=== PATIENT | male | born 1960 | race Caucasian/White ===

== ENCOUNTER 2016-10-21 10:44 | Emergency (ER) | payer OTHER ==
--- NOTE | ~2016-10-21 | CR230 ---
[facility]. [facility] A Service of [facility] & [facility] RADIOLOGY TEXT RESULTS PATIENT: CHRIS GARCIA LOCATION: SED : 62 UNIT #: [id number] AGE: [address]: Shimon Paredes MD SEX: M ORDER DR: [id number] [place] [id number] E MR#: [id number] Acc #: [id number] NAME: CHRIS GARCIA. : 1960 SEX: M STUDY DATE/TIME: 10/21/2016 10:32 UNIT: SED ROOM: STUDY DESCRIPTION: CR Shoulder Min 2 View Rt Attending Physician: Shimon Paredes M.D. Ordering Physician: Shimon Paredes M.D. Primary Care Physician: No Primary Care Physician MEDICAL IMAGING REPORT This report is preliminary unless electronic signature is present. EXAM Right shoulder, 3 views. HISTORY Arm and shoulder pain beginning 09/10/2016, after doing ductwork. TECHNIQUE 3 views are submitted. FINDINGS The exam shows AC joint hypertrophic changes. The glenohumeral joint is intact. No fractures are identified. CONCLUSION AC joint osteoarthropathy; otherwise, negative. Dictated by... Mani Patel M.D. THIS IS AN ELECTRONICALLY VERIFIED REPORT Mani Patel M.D. at 10/22/2016 5:04 PM FRANCI/giovanna TD: 10/21/2016 11:39 JOB #: [id number] MEDICAL IMAGING REPORT
[~2016-10-21 10:44] MED LIST: ATORVASTATIN CA20 MG PO; CHOLESTEROL MED; GLIPIZIDE PO; GLUCOPHAGE XR500 MG PO; GLUCOTROL PO; KEPPRA500 MG PO; LIPITOR PO; LISINOPRIL PO; METFORMIN HCL1000 M1 PO; METFORMIN PO; MS CONTIN60 M1 PO; NAPROSYN500 MG PO; OXYCODONE HCL30 MG PO; PERCOCET5/325 PO; PHENERGAN25 M1 PO; PHENERGAN25 MG PO; VICODIN 5/500 T1 TAB PO
[2016-10-21] MEDS ORDERED: VOLTAREN75 MG PO (11:34)
== END 2016-10-21 11:33 | disposition home or self-care (01) ==
LOC: SED 10:44
DX: S46.911A Strain of unspecified muscle, fascia and tendon at shoulder and upper arm level, right arm, initial encounter (principal); M19.011 Primary osteoarthritis, right shoulder; E11.9 Type 2 diabetes mellitus without complications; F17.210 Nicotine dependence, cigarettes, uncomplicated; Z88.8 Allergy status to other drugs, medicaments and biological substances; Z79.899 Other long term (current) drug therapy; X58.XXXA Exposure to other specified factors, initial encounter; Y92.69 Other specified industrial and construction area as the place of occurrence of the external cause
CPT/HCPCS: 73030; 82947; 99283

== ENCOUNTER 2017-03-16 14:57 | Emergency (ER) | payer OTHER ==
--- NOTE | ~2017-03-16 | CT2 ---
[facility] A Service of [facility] & [facility] RADIOLOGY TEXT RESULTS PATIENT: CHRIS GARCIA LOCATION: SED : 62 UNIT #: [id number] AGE: [address]: Wil Ledesma MD SEX: M ORDER DR: [id number] [address] [address] [id number] E MR#: [id number] Acc #: [id number] NAME: CHRIS GARCIA. : 1960 SEX: M STUDY DATE/TIME: 03/16/2017 15:28 UNIT: SED ROOM: STUDY DESCRIPTION: CT Abd and Pelv W Cont Attending Physician: Wil Ledesma M.D. Ordering Physician: Wil Ledesma M.D. Primary Care Physician: No Primary Care Physician MEDICAL IMAGING REPORT This report is preliminary unless electronic signature is present. EXAM CT of the abdomen and pelvis with contrast. INDICATIONS Mid abdominal pain starting at 02:30 today after eating. TECHNIQUE [address] of the abdomen and pelvis performed following the administration of IV contrast. Coronal and sagittal reformatted images are obtained. This CT exam was performed with one or more of the following radiation dose reduction techniques: automatic exposure control, adjustment of mA and/or kV according to patient size, and iterative reconstruction. COMPARISON Comparison with 11/27/2014. FINDINGS There is minimal linear scarring or atelectasis in the base of the right lung. There is a stable hemangioma in the periphery of the liver. The gallbladder is unremarkable. The spleen is unremarkable. Large chronic stone in the midpole region of the left kidney measuring about 1.1 x 0.5 cm, stable. There is some mild dilatation of mid zane distal to the stone. This also appears stable. There is a tiny cyst in the lower pole of the right kidney. The adrenal glands are unremarkable. The pancreas is unremarkable. Slight interval increase in size of infrarenal abdominal aortic aneurysm measuring about 3.7-3.8 cm in greatest AP dimension. Previously, it was 3.5 cm. There is there are some thickened loops of small bowel within the left side of the abdomen near the upper quadrant. This may represent enteritis. Pelvis: The colon is unremarkable. The appendix is present. It is STS. [facility] A Service of [facility] & [facility] RADIOLOGY TEXT RESULTS PATIENT: CHRIS GARCIA LOCATION: [facility] : 62 UNIT #: [id number] AGE: [address]: Wil Ledesma MD SEX: M ORDER DR: partially fluid-filled and mildly dilated at 7 mm, but there is no surrounding inflammatory stranding. Correlate clinically with patient's symptoms and location of pain. Prostatomegaly. No free fluid. Bone windows are unremarkable. IMPRESSION 1. There is thickening of multiple loops of small bowel within the left side of the abdomen near the upper quadrant, which may indicate enteritis. Correlate clinically. 2. Equivocal appearance of the appendix. It is mildly dilated at 7 mm partially fluid-filled, but no evidence of a surrounding inflammatory stranding. Correlate clinically with patient's symptoms history and location of pain. 3. Stable chronic upper/mid pole nonobstructing stone in the left kidney. 4. Slight interval increase in size of abdominal aortic aneurysm now measuring about 3.7-3.8 cm in greatest dimension. Previously, it was about 3.5 cm. Dictated by... Gutierrez Posadas M.D. THIS IS AN ELECTRONICALLY VERIFIED REPORT Gutierrez Posadas M.D. at 03/17/2017 7:28 AM ROYAL/sade TD: 03/17/2017 06:16 JOB #: [id number] MEDICAL IMAGING REPORT Page 1 of 1
[~2017-03-16 14:57] MED LIST changes: +VOLTAREN75 MG PO
[2017-03-16 15:30] LABS: POC - CREATININE 0.82 mg/dL (0.64-1.27); POC - GFR >60.0 mL/min (>60)
[2017-03-16 15:36] LABS: BASOPHIL# 0.1 X10e3 (0-0.3); EOSINOPHIL# 0.2 X10e3 (0-0.7); EOSINOPHIL% 1.3 % (0.0-7.0); HEMOGLOBIN 12.8 gm/dL (13.0-16.0); LYMPHOCYTE# 2.5 X10e3 (1.0-3.5); LYMPHOCYTE% 21.1 % (17.0-45.0); MEAN CELL VOLUME 87.1 FL (83-96); MEAN CORPUSCULAR HEMOGLOBIN 29.3 PG (28-34); MEAN CORPUSCULAR HGB CONC 33.6 g/dL (30-36); MEAN PLATELET VOLUME 7.2 FL (6.5-11.5); MONOCYTE# 0.6 X10e3 (0-1.0); MONOCYTE% 5.4 % (3.0-12.0); NEUTROPHIL# 8.5 X10e3 (1.5-7.1); NEUTROPHIL% 71.2 % (40-75); PLATELET COUNT 349 X10e3 (140-420); RED BLOOD COUNT 4.37 X10e (3.90-5.60); RED CELL DISTRIBUTION WIDTH 15.3 % (11.0-15.5); WHITE BLOOD COUNT 11.9 X10e3 (4.0-10.5)
[2017-03-16 15:55] LABS: DIFF IND NO
[2017-03-16 15:59] LABS: ALBUMIN SERUM 4.2 g/dL (3.5-5.0); ALKALINE PHOSPHATASE 84 U/L (32-92); ALT (SGPT) 25 U/L (10-40); AMYLASE 36 U/L (0-46); AST (SGOT) 24 U/L (10-42); BILIRUBIN,TOTAL 0.4 mg/dL (0.2-2.0); BLOOD UREA NITROGEN 18 mg/dL (9-23); CARBON DIOXIDE 27 mmol/L (22-31); CHLORIDE 102 mmol/L (100-111); CREATININE SERUM 0.9 mg/dL (0.6-1.4); GLOM FILT RATE Estimated 95.8 mL/min (>60); GLUCOSE FASTING 122 mg/dL (70-110); LIPASE 40 U/L (22-51); POTASSIUM 3.7 mmol/L (3.5-5.1); PROTEIN TOTAL SERUM 7.8 g/dL (6.0-8.3); SODIUM 138 mmol/L (135-145)
[2017-03-16 16:26] LABS: URINE SOURCE CLEAN CATCH
[2017-03-16 16:29] LABS: BILIRUBIN, DIRECT <0.1 mg/dL (0.0-0.2); BILIRUBIN,INDIRECT 0.3 mg/dL (0.0-0.9)
[2017-03-16 16:30] LABS: URINE APPEARANCE CLEAR; URINE BILIRUBIN NEG (NEG); URINE BLOOD 1+ (NEG); URINE COLOR YELLOW; URINE GLUCOSE NEG (NORM); URINE KETONE NEG (NEG); URINE LEUKOCYTE ESTERASE NEG (NEG); URINE NITRATE NEG (NEG); URINE PROTEIN NEG (NEG); URINE SPECIFIC GRAVITY <=1.005 (1.003-1.035); URINE UROBILINOGEN 0.2 MG/DL (NORM)
[2017-03-16 16:34] LABS: MICRO INDICATED? YES
[2017-03-16 16:46] LABS: CULTURE INDICATED? NO; URINE BACTERIA NEG (NEG); URINE WBC 0-2 /[HPF] (0-5)
== END 2017-03-16 17:50 | disposition left against medical advice (07) ==
LOC: SED 14:57
PROVIDERS: Emergency Medicine
DX: R10.9 Unspecified abdominal pain (principal); I10 Essential (primary) hypertension; F17.200 Nicotine dependence, unspecified, uncomplicated; Z88.5 Allergy status to narcotic agent; Z79.899 Other long term (current) drug therapy
CPT/HCPCS: 36415; 74177; 80048; 80076; 81003; 82150; 82565; 83690; 85025; 96361; 96374; 96375; 99285; J2270; J2405; J2543; Q9967